=== PATIENT | male | born 1960 | race Caucasian/White ===

== ENCOUNTER 2016-10-21 12:19 | Emergency (ER) | payer OTHER ==
[~2016-10-21] VITALS: Ht 175.3 cm; Wt 66.0 kg
[~2016-10-21 12:19] MED LIST: CIPR0.3S2 OP; LORTA5 PO
[2016-10-21 12:23] VITALS: BP 154/92; PULSE 79; RESP 14; TEMP 97.8
--- NOTE | 2016-10-21 12:27 | PD ---
HPI . chest wall laceration prior to arrival Chief Complaint: chest wall laceration prior to arrival Time Seen by Provider: 12:27 Travel History International Travel<30 days: No Contact w/Intl Traveler<30days: No Traveled to known affect area: No History of Present Illness HPI 55-year-old male with history of tobaccoism here with complaints of chest wall laceration he sustained earlier today while working with a saw. Apparently patient saw bounced back and hit him in the chest. He now has a very large laceration extending across his right chest across his neck extending to his jugular. He does not have any vessel, bony or nerve injury. It's a fairly superficial laceration. Patient is very common tells me he is in pain 09/15 located near laceration. He does not recall the date of his last tetanus, but thinks he may perceive the last year. PFSH Past Medical History Medical History: Denies Significant Hx Social History Tobacco Use: Yes Allergies-Medications (Allergen,Severity, Reaction): Coded Allergies: No Known Allergies (Unverified , 03/02/13) Reported Meds & Prescriptions Reported Meds & Active Scripts Active Bactrim DS (Sulfamethoxazole-Trimethoprim) 800-160 Mg Tab 1 Tab PO BID Hydrocodone/Acetaminophen 5 mg/325 mg 1 Tab Tab 1 Tab PO QID 5 Days Ciprofloxacin HCl (Ciprofloxacin Hcl (Ophth)) 0.3 % Shana 0.3 % OP DIRECTED 2 DROPS IN LEFT EYE EVERY 15 MINS FOR EVERY 6 HOURS, THEN EVERY 30 MINS EVERY 18 HOURS, THEN 1 DROP EVERY HOUR FOR ONE DAY, THEN EVERY 4 HOURS FOR 12 DAYS Review of Systems General / Constitutional: No: Fever Eyes: No: Visual changes HENT: No: Headaches Cardiovascular: No: Chest Pain or Discomfort Respiratory: No: Shortness of Breath Gastrointestinal: No: Abdominal Pain Genitourinary: No: Dysuria Musculoskeletal: No: Pain Skin: Positive Other (chest wall laceration ), No Rash Neurologic: No: Weakness Psychiatric: No: Depression Endocrine: No: Polydipsia Hematologic/Lymphatic: No: Easy Bruising Physical Exam Narrative GENERAL: AAO x 3, Well-nourished, well-developed patient. SKIN: Warm and dry. No visible rashes or bruising. large laceration across the right upper chest wall, tendon visible but not penetrated. no vessel or nerve injury. no deep muscle injury. HEAD: Normocephalic and atraumatic. EYES: No scleral icterus. No injection or drainage. ENT: No nasal drainage noted. Mucous membranes pink. Airway patent. NECK: Supple, trachea midline. No JVD. CARDIOVASCULAR: Regular rate and rhythm without murmurs, gallops, or rubs. RESPIRATORY: Breath sounds equally diminished bilaterally. No accessory muscle use. No rhonchi or rales. no wheezing. GASTROINTESTINAL: Abdomen soft, non-tender, nondistended. EXTREMITIES: No cyanosis or edema. BACK: No obvious deformity. NEURO: CN II-12 intact, PSYCH: AAO x 3, normal affect. Data Data Last Documented VS Vital Signs Date Time Temp Pulse Resp B/P Pulse Ox O2 Delivery O2 Flow Rate FiO2 10/21/16 12:23 97.8 79 14 154/92 Orders Chest, Pa & Lat (10/21/16 ) Tetanus/Diphtheria Tox Adult (Tetanus/Di (10/21/16 12:30) Lidocai-Epi 1%-1:100,000 Inj (Xylocaine- (10/21/16 12:30) Acetamin-Hydrocod 325-5 Mg ([place] 5-325 (10/21/16 12:30) MDM Medical Decision Making Medical Screen Exam Complete: Yes Emergency Medical Condition: Yes Medical Record Reviewed: Yes Differential Diagnosis chest wall laceration, less likely muscle injury, less likely jugular vein injury, Narrative Course 55-year-old male here with a laceration to his right sided chest wall. Patient sustained it while using a saw at work. Laceration measures approximately 19.4 cm. CXR ordered. Patient gave verbal consent to repair. The laceration was repaired with 25 kristy. Patient was advised to have these removed in 10-14 days. Tetanus shot administered without incident. Antibiotics upon discharge. Last Impressions Chest X-Ray 10/21/16 0000 Signed Impressions: Service Date/Time: Friday, October 21, 2016 12:42 - CONCLUSION: No acute disease. Chetan Livingston MD We discussed the signs of infection and when to return to the ED. Procedures Procedure Narrative LACERATION LOCATION: right chest wall LENGTH: 19.4 cm NUMBER OF STITCHES/KRISTY: 25 REPAIR: The area of the laceration was prepped with Betadine and sterilely draped. The laceration was infiltrated with 1% lidocaine. The wound was copiously irrigated and explored without evidence of foreign body, tendon injury or neurovascular injury. The wound was closed using kristy. This was a single layer repair. A sterile dressing was applied. The patient was advised to keep the dressing clean and dry. Patient tolerated the procedure well. Diagnosis Primary Impression: Laceration of chest wall Qualified Code: S21.111A - Laceration of chest wall, right, initial encounter Additional Impression: Accident at workplace Patient Instructions: General Instructions Additional Instructions: Keep area clean and dry. Use gauze as we discussed and change 1-2 times a day. Watch for signs of infection: fever, redness, swelling, warmth, pus or drainage , red streaks around the cut, and increased pain from the area. If you received a tetanus shot, you may experience tenderness at the injection site. This is normal. These kristy will need to be removed in 10-14 days. (25 kristy) Med/Other Pt SpecificInfo: Prescription(s) given Scripts Sulfamethoxazole-Trimethoprim (Bactrim DS)800-160 Mg Tab1 Tab PO BID #20 TAB Prov:Freddy Cain MD 10/21/16 Disposition: 01 DISCHARGE HOME Condition: Stable Luz Elena Lala Oct 21, 2016 12:27
[2016-10-21] MEDS ORDERED: LIDOCAINE 1%/EPINEPHrine 1:100,000 SOLN 20 ML VIAL INFIL ONE (12:30)
[2016-10-21] MEDS ORDERED: ACETAMINOPHEN/HYDROcodone 325 MG/5 MG TAB PO ONE (12:30)
[2016-10-21] MEDS ORDERED: TETANUS/DIPHTHERIA TOXOID ADULT 0.5 ML VIAL IM ONE (12:30)
[2016-10-21] MEDS ORDERED: BACT800T5 PO (13:21)
--- NOTE | 2016-10-21 14:12 | RADRPT ---
EXAM DATE/TIME: 10/21/2016 12:42 [facility] COMPARISON: No previous studies available for comparison. INDICATIONS : Upper chest lacerations from power tool breaking apart. Patient states shroud from a saw hit him on h is chest. Patient c/o tightening in upper chest area. MEDICAL HISTORY : None. SURGICAL HISTORY : None. ENCOUNTER: Initial ACUITY: 1 day PAIN SCORE: 9/10 LOCATION: Bilateral chest upper FINDINGS: PA and lateral views of the chest demonstrate the lungs to be symmetrically aerated without evidence of mass, infiltrate or effusion. The cardiomediastinal contours are unremarkable. Osseous structure s are intact. CONCLUSION: No acute disease. Chetan Livingston MD on October 21, 2016 at 14:11 Board Certified Radiologist. This report was verified electronically.
== END 2016-10-21 15:11 | disposition home or self-care (01) ==
LOC: NEPD 12:19
DX: S21.111A Laceration without foreign body of right front wall of thorax without penetration into thoracic cavity, initial encounter (principal); W29.8XXA Contact with other powered hand tools and household machinery, initial encounter; Z23 Encounter for immunization
CPT/HCPCS: 12005; 71020; 90471; 90714

== ENCOUNTER 2016-10-24 15:07 | Emergency (ER) | payer OTHER ==
[~2016-10-24] VITALS: Ht 175.3 cm; Wt 65.0 kg
[~2016-10-24 15:07] MED LIST changes: +BACT800T5 PO
[2016-10-24 15:08] VITALS: BP 143/74; PULSE 89; RESP 15; TEMP 98.4; O2SAT 98
[2016-10-24] MEDS ORDERED: HYDR-3533 PO (16:27)
[2016-10-24] MEDS ORDERED: ROBA500T PO (16:39)
[2016-10-24] MEDS ORDERED: IBUP800T23 PO (16:39)
--- NOTE | 2016-10-24 16:45 | PD ---
HPI Chief Complaint: Medication Refill Request Time Seen by Provider: 16:38 Travel History International Travel<30 days: No Contact w/Intl Traveler<30days: No Traveled to known affect area: No History of Present Illness HPI 35-year-old male presents to the emergency department requesting pain medications for laceration sustained to his chest wall on October 21. He was seen here and was not given any medications for pain. He has been taking the Bactrim as prescribed. He denies drainage from the wound site. This area has tightened up and is having trouble with movement and sleeping. Denies fever, vomiting. He has been taking [id number] medications with minimal relief of symptoms. He has been keeping the area clean, dry, and covered and changing the bandage daily. Symptoms are moderate in severity. No known allergies. Has no other medical complaints. No other modifying factors or associated signs and symptoms. PFSH Past Medical History Diminished Hearing: No Social History Alcohol Use: No Tobacco Use: Yes Substance Use: No Allergies-Medications (Allergen,Severity, Reaction): Coded Allergies: No Known Allergies (Unverified , 03/02/13) Reported Meds & Prescriptions Reported Meds & Active Scripts Active Ibuprofen 800 Mg Tab 800 Mg PO Q6HR PRN Robaxin (Methocarbamol) 500 Mg Tab 500 Mg PO QID PRN Lortab (Hydrocodone-Acetaminophen) 5-325 Mg Tab 1-2 Tab PO Q6H PRN Bactrim DS (Sulfamethoxazole-Trimethoprim) 800-160 Mg Tab 1 Tab PO BID Hydrocodone/Acetaminophen 5 mg/325 mg 1 Tab Tab 1 Tab PO QID 5 Days Ciprofloxacin HCl (Ciprofloxacin Hcl (Ophth)) 0.3 % Shana 0.3 % OP DIRECTED 2 DROPS IN LEFT EYE EVERY 15 MINS FOR EVERY 6 HOURS, THEN EVERY 30 MINS EVERY 18 HOURS, THEN 1 DROP EVERY HOUR FOR ONE DAY, THEN EVERY 4 HOURS FOR 12 DAYS Review of Systems Except as stated in HPI: all other systems reviewed are Neg Physical Exam Narrative GENERAL: Well-nourished, well-developed male patient, in no acute distress; afebrile, nontoxic-appearing SKIN: Warm and dry. Approximately 23 cm laceration from the left lower neck diagonal across the mid chest; kristy intact; well approximated without erythema, edema, drainage. No signs of infection. HEAD: Atraumatic. Normocephalic. EYES: Pupils equal and round. No scleral icterus. No injection or drainage. ENT: Mucosa pink and moist. Airway patent. NECK: Trachea midline. CARDIOVASCULAR: Regular rate. RESPIRATORY: No accessory muscle use. GASTROINTESTINAL: Flat. MUSCULOSKELETAL: No obvious deformities. No clubbing. No cyanosis. No edema. NEUROLOGICAL: Awake and alert. Oriented 3. No obvious cranial nerve deficits. Motor grossly within normal limits. Normal speech. PSYCHIATRIC: Appropriate mood and affect; insight and judgment normal. Data Data Last Documented VS Vital Signs Date Time Temp Pulse Resp B/P Pulse Ox O2 Delivery O2 Flow Rate FiO2 10/24/16 15:08 98.4 89 15 143/74 98 MDM Medical Decision Making Medical Screen Exam Complete: Yes Emergency Medical Condition: Yes Medical Record Reviewed: Yes Differential Diagnosis Laceration of chest wall, wound recheck, pain management, chest wall pain Narrative Course 55-year-old male was seen here on October 21 for a large laceration to the chest wall requesting medications for pain. The laceration measures approximately 23 cm in diameter. There are no signs of infection. The laceration is well approximated with kristy intact. Due to the significance of the injury I do feel that pain medications are warranted at this time. Lortab, ibuprofen, and Robaxin prescribed for home. Instructed patient to follow up with primary care provider. Patient verbalizes understanding and agreement with treatment plan. Patient is medically cleared and stable for discharge. Discussed reasons to return to the emergency department. Patient agrees with treatment plan. The patients vital signs are stable and the patient is stable for outpatient follow- up and treatment. Patient discharged home, stable and in no acute distress. Diagnosis Primary Impression: Laceration of chest wall Qualified Code: S21.119D - Laceration of chest wall, unspecified laterality, subsequent encounter Additional Impression: Chest wall pain Referrals: Primary Care Physician Patient Instructions: General Instructions, Laceration (ED), Staple Care (ED) Additional Instructions: Continue stable care as directed and discharge instructions Continue antibiotics as prescribed Ibuprofen or Tylenol as directed and as needed for pain and inflammation Follow-up with primary care provider Return to the emergency department immediately with worsening of symptoms Med/Other Pt SpecificInfo: Prescription(s) given Scripts Ibuprofen 800 Mg [id number] Mg PO Q6HR PRN (PAIN) #30 TAB Ref 0 Prov:Amanda Zaidi PERFORMANCE IMPROVEMENT COORDINATOR 10/24/16 Methocarbamol (Robaxin)500 Mg [id number] Mg PO QID PRN (MUSCLE SPASM) #30 TAB Ref 0 Prov:Amanda Zaidi 10/24/16 Hydrocodone-Acetaminophen (Lortab)5-325 Mg Tab1-2 Tab PO Q6H PRN (PAIN) #20 TAB Ref 0 Prov:Chetan Vital MD 10/24/16 Disposition: 01 DISCHARGE HOME Condition: Stable Amanda Zaidi Oct 24, 2016 16:45
== END 2016-10-24 17:28 | disposition home or self-care (01) ==
LOC: NEPK 15:07
DX: R07.89 Other chest pain (principal); S21.119D Laceration without foreign body of unspecified front wall of thorax without penetration into thoracic cavity, subsequent encounter; Z72.0 Tobacco use; X58.XXXD Exposure to other specified factors, subsequent encounter
CPT/HCPCS: 99281

== ENCOUNTER 2016-10-27 09:50 | Emergency (ER) | payer OTHER ==
[~2016-10-27] VITALS: Ht 175.3 cm; Wt 66.0 kg
[~2016-10-27 09:50] MED LIST changes: +HYDR-3533 PO; +IBUP800T23 PO; +ROBA500T PO
[2016-10-27 09:51] VITALS: BP 146/78; PULSE 72; RESP 20; TEMP 98; O2SAT 98
[2016-10-27] MEDS ORDERED: LIDOCAINE 1%/EPINEPHrine 1:100,000 SOLN 20 ML VIAL INFIL ONE (12:30)
[2016-10-27] MEDS ORDERED: CLINDAMYCIN INJ 900 MG in SODIUM CHLORIDE 0.9% INJ 100 ML IV ONE (12:30)
[2016-10-27] MEDS ORDERED: SODIUM CHLORIDE 0.9% FLUSH 10 ML FLUSH IVF PRN (12:30)
--- NOTE | 2016-10-27 12:36 | PD ---
HPI Chief Complaint: Skin Problem Time Seen by Provider: 12:18 Travel History International Travel<30 days: No Contact w/Intl Traveler<30days: No Traveled to known affect area: No History of Present Illness HPI Patient is a 55-year-old male presented to emergency for evaluation of a lump to his anterior chest wall. Patient states he cut himself with a saw blade on October 21. At that time the laceration was repaired and he was placed on antibiotics which she reports compliance with. 4 days ago he started developing the swelling to the chest wall with minimal drainage. Patient denies any fever, chills, nausea, vomiting, chest pain or shortness of breath. He denies any pain at this time but states he's been taking pain medications which helps. PFSH Past Medical History Medical History: Denies Significant Hx Diminished Hearing: No Past Surgical History Surgical History: No Previous Surgery Social History Alcohol Use: No Tobacco Use: Yes Substance Use: No Allergies-Medications (Allergen,Severity, Reaction): Coded Allergies: No Known Allergies (Unverified , 10/27/16) Reported Meds & Prescriptions Reported Meds & Active Scripts Active Ibuprofen 800 Mg Tab 800 Mg PO Q6HR PRN Robaxin (Methocarbamol) 500 Mg Tab 500 Mg PO QID PRN Lortab (Hydrocodone-Acetaminophen) 5-325 Mg Tab 1-2 Tab PO Q6H PRN Bactrim DS (Sulfamethoxazole-Trimethoprim) 800-160 Mg Tab 1 Tab PO BID Review of Systems Except as stated in HPI: all other systems reviewed are Neg General / Constitutional: No: Fever, Chills HENT: No: Headaches Cardiovascular: No: Chest Pain or Discomfort Respiratory: No: Shortness of Breath Gastrointestinal: No: Nausea, Vomiting, Abdominal Pain Musculoskeletal: Positive: Pain Skin: Positive Lumps, Positive Change in Pigmentation Physical Exam Narrative GENERAL: Thin, well-developed, alert male. Resting comfortably in no acute distress. SKIN: Warm and dry. 5 X 4cm erythematous, edematous area to anterior chest wall along previous repaired laceration. Serosanguineous drainage noted along the incision site. Warm to touch. HEAD: Atraumatic. Normocephalic. EYES: Pupils equal and round. No scleral icterus. No injection or drainage. ENT: No nasal bleeding or discharge. Mucous membranes pink and moist. NECK: Trachea midline. No JVD. CARDIOVASCULAR: Regular rate and rhythm. RESPIRATORY: No accessory muscle use. Clear to auscultation. Breath sounds equal bilaterally. GASTROINTESTINAL: Abdomen soft, non-tender, nondistended. Hepatic and splenic margins not palpable. MUSCULOSKELETAL: Extremities without clubbing, cyanosis, or edema. No obvious deformities. NEUROLOGICAL: Awake and alert. No obvious cranial nerve deficits. Motor grossly within normal limits. Five out of 5 muscle strength in the arms and legs. Normal speech. PSYCHIATRIC: Appropriate mood and affect; insight and judgment normal. Data Data Last Documented VS Vital Signs Date Time Temp Pulse Resp B/P (MAP) Pulse Ox O2 Delivery O2 Flow Rate FiO2 10/27/16 09:51 98.0 72 20 146/78 (100) 98 Room Air Orders Orders Sternum - Min 2 Vws (10/27/16 ) Complete Blood Count With Diff (10/27/16 12:23) Blood Culture (10/27/16 12:23) Wound Culture And Gram Stain (10/27/16 12:23) Iv Access Insert/Monitor (10/27/16 12:23) Sodium Chloride 0.9% Flush (Ns Flush) (10/27/16 12:30) Clindamycin Inj (Cleocin Inj) (10/27/16 12:30) Lidocai-Epi 1%-1:100,000 Inj (Xylocaine- (10/27/16 12:30) Comprehensive Metabolic Panel (10/27/16 12:23) Labs Laboratory Tests Test 10/27/16 12:55 White Blood Count 8.0 TH/MM3 Red Blood Count 5.09 MIL/MM3 Hemoglobin 13.9 GM/DL Hematocrit 42.5 % Mean Corpuscular Volume 83.5 FL Mean Corpuscular Hemoglobin 27.3 PG Mean Corpuscular Hemoglobin Concent 32.7 % Red Cell Distribution Width 14.5 % Platelet Count 247 TH/MM3 Mean Platelet Volume 7.8 FL Neutrophils (%) (Auto) 74.0 % Lymphocytes (%) (Auto) 18.5 % Monocytes (%) (Auto) 4.3 % Eosinophils (%) (Auto) 2.2 % Basophils (%) (Auto) 1.0 % Neutrophils # (Auto) 5.9 TH/MM3 Lymphocytes # (Auto) 1.5 TH/MM3 Monocytes # (Auto) 0.3 TH/MM3 Eosinophils # (Auto) 0.2 TH/MM3 Basophils # (Auto) 0.1 TH/MM3 CBC Comment DIFF FINAL Differential Comment Blood Urea Nitrogen 19 MG/DL Creatinine 0.99 MG/DL Random Glucose 75 MG/DL Total Protein 8.9 GM/DL Albumin 4.2 GM/DL Calcium Level 9.6 MG/DL Alkaline Phosphatase 78 U/L Aspartate Amino Transf (AST/SGOT) 22 U/L Alanine Aminotransferase (ALT/SGPT) 33 U/L Total Bilirubin 0.4 MG/DL Sodium Level 134 MEQ/L Potassium Level 4.5 MEQ/L Chloride Level 102 MEQ/L Carbon Dioxide Level 25.6 MEQ/L Anion Gap 6 MEQ/L Estimat Glomerular Filtration Rate 79 ML/MIN MDM Medical Decision Making Medical Screen Exam Complete: Yes Emergency Medical Condition: Yes Medical Record Reviewed: Yes Interpretation(s) Vital Signs Date Time Temp Pulse Resp B/P (MAP) Pulse Ox O2 Delivery O2 Flow Rate FiO2 10/27/16 09:51 98.0 72 20 146/78 (100) 98 Room Air Differential Diagnosis Cellulitis versus abscess versus hematoma versus other Narrative Course Patient is a 55-year-old male who presented to emergency department for evaluation of an abscess to his chest wall. Patient's vital signs are stable, he is afebrile. IV access established. Labs and imaging ordered and pending. CBC with no acute findings CMP with no acute findings X-ray of the sternum read by radiologist shows soft tissue swelling and skin kristy, retrosternal soft tissues are normal in thickness and the joints are intact. Patient was given IV clindamycin in the emergency department. Please see procedure report for I&D Pt will be placed on keflex and clindamycin. He was advised to return to emergency department in 48 hours for reevaluation, sooner for any new or worsening symptoms. He was given wound care instructions. He verbalized understanding of discharge instructions. Patient stable for discharge. Procedures Procedure Narrative After the risks and benefits were discussed the following procedure was performed: INCISION AND DRAINAGE OF ABSCESS: The area was prepped and was sterilely draped. A subcutaneous wheal of 1 % Xylocaine with a total number 3 mL was used to anesthetize the area. The area was properly anesthetized. A number 11 scalpel was used to make a 2 -cm incision across the initial laceration after the kristy were removed. Cultures were obtained. The abscess was drained an irrigated with normal saline. Quarter inch iodoform packing was placed in the wound. Sterile dressing applied. Patient advised to have packing removed in two days. Diagnosis Primary Impression: Abscess of chest wall Additional Impression: Laceration of chest wall Qualified Codes: S21.119D - Laceration without foreign body of unspecified front wall of thorax without penetration into thoracic cavity, subsequent encounter Referrals: Primary Care Physician 2 days Patient Instructions: Abscess (GEN), Abscess Incision and Drainage (DC), General Instructions Additional Instructions: Return to emergency department in 48 hours for re-evaluation Complete full course of antibiotics as prescribed Keep packing in place, keep incision clean and dry, cover with nonocclusive dressing Return to emergency department immediately for any new or worsening symptoms Follow-up with your primary doctor Med/Other Pt SpecificInfo: Prescription(s) given Scripts Clindamycin (Clindamycin) 150 Mg Cap 300 MG PO Q8HR for Infection for 10 Days, CAP 0 Refills Prov: Kim Syed 10/27/16 Cephalexin (Keflex) 500 Mg Cap 500 MG PO Q12H for Infection, #20 CAP 0 Refills Prov: Kim Syed 10/27/16 Disposition: 01 DISCHARGE HOME Condition: Stable Kim Syed Oct 27, 2016 12:36
[2016-10-27 13:12] LABS: AUTOMATED NEUTROPHIL # 5.9 TH/MM3 (1.8-7.7); BASOPHIL # 0.1 TH/MM3 (0-0.2); EOSINOPHIL # 0.2 TH/MM3 (0-0.4); EOSINOPHIL % 2.2 % (0.0-4.0); HEMATOCRIT 42.5 % (39.0-51.0); HEMO FLAGS DIFF FINAL; LYMPH % 18.5 % (9.0-44.0); LYMPHOCYTE # 1.5 TH/MM3 (1.0-4.8); MEAN CELL VOLUME 83.5 FL (80.0-100.0); MEAN CORPUSCULAR HEMOGLOBIN 27.3 PG (27.0-34.0); MEAN CORPUSCULAR HGB CONC 32.7 % (32.0-36.0); MONO % 4.3 % (0.0-8.0); PLATELET COUNT 247 TH/MM3 (150-450); RED BLOOD COUNT 5.09 MIL/MM3 (4.50-5.90); RED CELL DISTRIBUTION WIDTH 14.5 % (11.6-17.2)
[2016-10-27 13:26] LABS: ANION GAP 6 MEQ/L (5-15); AST (GOT) 22 U/L (15-37); BICARBONATE 25.6 MEQ/L (21.0-32.0); BLOOD UREA NITROGEN 19 MG/DL (7-18); CHLORIDE 102 MEQ/L (98-107); GLOMERULAR FILTRATION RATE 79 ML/MIN (>89); POTASSIUM 4.5 MEQ/L (3.5-5.1); SODIUM (NA) 134 MEQ/L (136-145)
[2016-10-27 13:30] LABS: ALKALINE PHOSPHATASE 78 U/L (45-117); ALT (GPT) 33 U/L (12-78); TOTAL BILIRUBIN ADULT 0.4 MG/DL (0.2-1.0)
--- NOTE | 2016-10-27 13:30 | RADRPT ---
EXAM DATE/TIME: 10/27/2016 13:20 [facility] COMPARISON: No previous studies available for comparison. INDICATIONS : Patient cut chest last Thursday with saw. He has pain over his right chest and up into his neck. MEDICAL HISTORY : None. SURGICAL HISTORY : None. ENCOUNTER: Initial ACUITY: 1 week PAIN SCORE: 7/10 LOCATION: Right chest FINDINGS: Two-view examination of the sternum demonstrates no evidence of fracture or dislocation. The sternom anubrial and sternoclavicular joints appear intact. The retrosternal soft tissues are normal in thic kness. Soft tissue swelling with skin kristy. CONCLUSION: Sternum appears intact. Abelardo Silva MD on October 27, 2016 at 13:28 Board Certified Radiologist. This report was verified electronically.
[2016-10-27] MEDS ORDERED: CEPH-460 PO (14:28)
[2016-10-27] MEDS ORDERED: CLIN1CAP5 PO (14:28)
[2016-10-27] MEDS ORDERED: TRAM50TA PO (14:29)
== END 2016-10-27 15:33 | disposition home or self-care (01) ==
LOC: NEPD 09:50
DX: L02.213 Cutaneous abscess of chest wall (principal); Z72.0 Tobacco use
CPT/HCPCS: 10060; 10061; 71120; 80053; 85025; 86403; 87040; 87070; 96365

== ENCOUNTER 2016-10-29 08:31 | Emergency (ER) | payer OTHER ==
[~2016-10-29] VITALS: Ht 175.3 cm; Wt 65.0 kg
[~2016-10-29 08:31] MED LIST changes: +CEPH-460 PO; -CIPR0.3S2 OP; +CLIN1CAP5 PO; -LORTA5 PO; +TRAM50TA PO
[2016-10-29 08:33] VITALS: BP 132/100; PULSE 72; RESP 20; TEMP 98.1; O2SAT 98
--- NOTE | 2016-10-29 09:01 | PD ---
HPI Chief Complaint: Wound/Suture/Staple Re-Check Time Seen by Provider: 09:01 Travel History International Travel<30 days: No Contact w/Intl Traveler<30days: No Traveled to known affect area: No History of Present Illness HPI 56-year-old male presents to the emergency department for packing removal from an abscess from his chest wall that was incised and drained on October 27 here at [facility]. He sustained a large laceration from a saw to his chest wall on October 21. He denies fever, vomiting. He is taking Keflex and clindamycin as prescribed and is compliant. He is working with [employer] to have a wound care nurse come to his home. Symptoms are moderate in severity. No other medical complaints. No known allergies. No other modifying factors or associated signs and symptoms. PFSH Past Medical History Diminished Hearing: No Social History Alcohol Use: No Tobacco Use: Yes (1 PPD) Substance Use: No Allergies-Medications (Allergen,Severity, Reaction): Coded Allergies: No Known Allergies (Unverified , 10/29/16) Reported Meds & Prescriptions Reported Meds & Active Scripts Active Tramadol (Tramadol HCl) 50 Mg Tab 50 Mg PO Q6H PRN Clindamycin (Clindamycin HCl) 150 Mg Cap 300 Mg PO Q8HR 10 Days Keflex (Cephalexin) 500 Mg Cap 500 Mg PO Q12H Ibuprofen 800 Mg Tab 800 Mg PO Q6HR PRN Robaxin (Methocarbamol) 500 Mg Tab 500 Mg PO QID PRN Lortab (Hydrocodone-Acetaminophen) 5-325 Mg Tab 1-2 Tab PO Q6H PRN Bactrim DS (Sulfamethoxazole-Trimethoprim) 800-160 Mg Tab 1 Tab PO BID Review of Systems Except as stated in HPI: all other systems reviewed are Neg Physical Exam Narrative GENERAL: Thin, well-nourished, well-developed male patient, in no acute distress; afebrile, nontoxic-appearing SKIN: Warm and dry. Proximally 15 Laceration from the left lower neck diagonal down the chest that is well approximated with kristy intact; approximately in the center of the laceration there is an opening approximately 2-2-1/2 cm with iodoform packing intact; minimal surrounding erythema to this area. HEAD: Atraumatic. Normocephalic. EYES: Pupils equal and round. No scleral icterus. No injection or drainage. ENT: Mucosa pink and moist. Airway patent. NECK: Trachea midline. CARDIOVASCULAR: Regular rate. RESPIRATORY: No accessory muscle use. GASTROINTESTINAL: Flat. MUSCULOSKELETAL: No obvious deformities. No clubbing. No cyanosis. No edema. NEUROLOGICAL: Awake and alert. Oriented 3. No obvious cranial nerve deficits. Motor grossly within normal limits. Normal speech. PSYCHIATRIC: Appropriate mood and affect; insight and judgment normal. Data Data Last Documented VS Vital Signs Date Time Temp Pulse Resp B/P (MAP) Pulse Ox O2 Delivery O2 Flow Rate FiO2 10/29/16 08:33 98.1 72 20 132/100 (111) 98 Room Air MDM Medical Decision Making Medical Screen Exam Complete: Yes Emergency Medical Condition: Yes Medical Record Reviewed: Yes Differential Diagnosis Encounter for abscess packing removal, abscess of chest wall, encounter for wound recheck, laceration of chest wall Narrative Course This is a 56-year-old male who sustained a laceration to the chest wall on October 21. He was reevaluated on October 27 with an abscess that was incised and drained to the laceration. She returns today for packing removal and wound recheck. I don't for packing removed and patient tolerated well. The abscesses approximately 2-2-1/2 cm and is still open. The abscess was repacked with iodoform packing. I instructed the patient to return to the emergency department in 48 hours for packing removal and wound recheck. He is working on getting a wound care nurse to come to the home. Told the patient that if he did not get a wound care nurse within 48 hours to return to the emergency department and he verbalized understanding and agreement. Instructed patient to continue antibiotics as prescribed and he verbalized understanding and agreement. Patient is afebrile and nontoxic-appearing. He denies fever, vomiting. Instructed patient to follow up with primary care provider. Patient verbalizes understanding and agreement with treatment plan. Patient is medically cleared and stable for discharge. Discussed reasons to return to the emergency department. Patient agrees with treatment plan. The patients vital signs are stable and the patient is stable for outpatient follow-up and treatment. Patient discharged home, stable and in no acute distress. Diagnosis Primary Impression: Encounter for abscess packing removal Additional Impressions: Abscess of chest wall Laceration of chest wall Qualified Codes: S21.119S - Laceration without foreign body of unspecified front wall of thorax without penetration into thoracic cavity, sequela Encounter for wound re-check Referrals: Primary Care Physician Patient Instructions: Abscess (ED), Abscess Follow-up (ED), Abscess Incision and Drainage (DC), General Instructions Additional Instructions: Continue antibiotics as prescribed Follow up with primary care provider/Workmen's Comp. Return to the emergency department in 48 hours for wound recheck Return to the emergency department earlier with worsening of symptoms Med/Other Pt SpecificInfo: No Change to Meds, No Meds Exist/No RX given Disposition: 01 DISCHARGE HOME Condition: Stable Amanda Zaidi [employer] Oct 29, 2016 09:01
== END 2016-10-29 09:45 | disposition home or self-care (01) ==
LOC: NEPK 08:31
DX: L02.213 Cutaneous abscess of chest wall (principal); Z48.01 Encounter for change or removal of surgical wound dressing
CPT/HCPCS: 99281